=== PATIENT | female | born 1945 | race Caucasian/White ===

== ENCOUNTER 2024-09-08 14:43 | Emergency (ER) | payer SELFPAY ==
[2024-09-08 14:59] VITALS: BP 139/81
[2024-09-08 16:28] VITALS: BMI 30.9
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
[2024-09-08] MEDS: MOTRIN 800 MG PO (17:17)
[2024-09-08] MEDS: ADACEL 0.5 ML IM (17:18)
[2024-09-08 17:41] VITALS: BP 135/70
== END 2024-09-08 17:52 | disposition home or self-care (01) ==
LOC: EMR 14:43
PROVIDERS: EMERGENCY PHYSICIAN Emergency Medicine; FAMILY PHYSICIAN Internal Medicine
DX: S60.221A Contusion of right hand, initial encounter (principal); S60.012A Contusion of left thumb without damage to nail, initial encounter; S60.811A Abrasion of right wrist, initial encounter; V43.52XA Car driver injured in collision with other type car in traffic accident, initial encounter; E03.9 Hypothyroidism, unspecified; E78.00 Pure hypercholesterolemia, unspecified; Z23 Encounter for immunization
CPT/HCPCS: 29125; 90471; 99284; 71046; 73110; 90715; 93005

== ENCOUNTER → 2025-02-27 15:45 | Outpatient (REF) | payer MEDICARE, SELFPAY | LOC: DHSLP 15:45 | PROVIDERS: ATTENDING PHYSICIAN Internal Medicine Critical Care Medicine; FAMILY PHYSICIAN Nurse Practitioner Family | DX: G47.30 Sleep apnea, unspecified (principal); R06.83 Snoring; R09.02 Hypoxemia | CPT/HCPCS: 95800 ==

== ENCOUNTER 2025-03-30 14:31 | Emergency (ER) | payer MEDICARE, SELFPAY ==
[2025-03-30 14:34] VITALS: BP 154/77
--- NOTE | 2025-03-30 19:31 | ED.GENMED ---
History of Present Illness
General
Chief Complaint: Eye Problems
Time Seen by Provider: 03/30/25 19:00
History of Present Illness
History of Present Illness:
79-year-old female with history of hyperlipidemia presents to the emergency department for evaluation of brief episode of diplopia. 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 She
notes that today for approximately 1 hour she felt as though images on the left eye were 'laying on top of 1 another'. She is unable to discern if this got better or worse with comforting or uncovering of the alternate eye. Symptoms have since
resolved. She states she has a family history of brain aneurysm and wants to be sure that this is not the cause of her symptoms today. Denies any headache, extremity paresthesias, or speech difficulty.
Past History
Past History
ED Past Medical History: Hypercholesterolemia, Psychiatric and Other (Hypothyroidism, insomnia,)
ED Past Surgical History: Gynecological and Orthopedic
Social History
Tobacco: Non-smoker
Alcohol: None
Drug: None
Living: alone
Review of Systems
Review of Systems
Allergies reviewed?: Yes
All Other Systems: ROS reviewed and negative except as documented in HPI and ROS
Phy Exam
Physical Exam
Physical Exam:
GEN: Well appearing, NAD, WDWN
HEENT: Oral mucosa moist, no scleral icterus, no nasal congestion
Cardiac: Regular rate and rhythm, no murmur
Lung: No respiratory distress, no tachypnea
MSK: No gross deformity or injuries
Skin: Good color, no pallor or jaundice, no rashes
Neuro: AO x3; CN II-XII grossly intact. BUE strength 5/5 in all best, sensation intact and symmetric. BLE strength 5/5 in all best, sensation intact and symmetric
Psych: Calm, cooperative
Course
Orders/Labs/Results
Orders:
Orders
03/30/25 14:[address] [CT Head W/o Iv Contrast] Urgent
Comment:
Reason For Exam: resolved double vision
03/30/25 19:20
03/30/25 19:21
Vital Signs
Initial and Last Documented VS:
Initial Vital Signs
Temp Pulse Resp BP Pulse Ox
97.8 F 69 18 154/77 98
03/30/25 14:34 03/30/25 14:34 03/30/25 14:34 03/30/25 14:34 03/30/25 14:34
Last Documented Vital Signs
Temp Pulse Resp BP Pulse Ox
97.8 F 69 18 154/77 98
03/30/25 14:34 03/30/25 14:34 03/30/25 14:34 03/30/25 14:34 03/30/25 19:31
MDM/Problems Addressed
MDM/Problems Addressed:
Patient's symptoms have resolved. Initial head CT was reassuring. I discussed the findings with the patient and recommended that we consider additional imaging and lab work such as CT angiogram to further evaluate for potential brain aneurysm
however she would prefer to be discharged home. I advised her that our workup today is not adequate to fully evaluate diplopia although my suspicion for an intracranial cause is low, particularly given that she has chronic right-sided diplopia,
this may be a progression of whatever ophthalmologic issue caused that to develop. I have recommended she consider follow-up with her primary doctor to obtain an outpatient MRI
*Pulse Oximetry
SaO2: 98
Oxygen Mode of Delivery: Room air
Patient hypoxic: no
*Critical Care Note
Total Time (30-74mins, 75-104mins- exclusive of procedures): Not Applicable
ED Attending Note
-
Portions of this chart may have been created with voice recognition software.� Occasional wrong word or��sound alike� substitutions may have occurred due to the inherent limitations of voice recognition software.
Discharge Plan
Departure
Patient Disposition: Home (Routine Discharge)
Date of Disposition: 03/30/25
Time of Disposition: 19:31
Patient with high blood pressure during this ER visit?: No
Discharge Problem:
Transient diplopia
Instructions: Double Vision (DC)
Referrals:
Jeff Bullock MD [Family Provider, Family Practice]
Activity Restrictions/Additional Instructions:
Follow up with your primary doctor for MRI
Interventions
Interventions:
*Risk Screen - Suicide Last Done: 03/30/25 14:34
*General Assessment Last Done: 03/30/25 14:34
*Neglect/Abuse Screening Last Done: 03/30/25 14:34
*ED- Fall Risk Assessment Last Done: 03/30/25 14:34
*ED COVID-19 Vaccine History Last Done: 03/30/25 14:34
*Nursing Disposition Last Done: 03/30/25 19:32
Discharge Date and Time
Discharge Date/Time: 03/30/25 19:32
Print Language: [place]
== END 2025-03-30 19:32 | disposition home or self-care (01) ==
LOC: EMR 14:31
PROVIDERS: EMERGENCY PHYSICIAN Emergency Medicine; FAMILY PHYSICIAN Family Medicine
DX: H53.2 Diplopia (principal); E78.00 Pure hypercholesterolemia, unspecified
CPT/HCPCS: 99284; 70450

== ENCOUNTER → 2025-04-17 13:56 | Outpatient (REF) | payer MEDICARE, SELFPAY ==
[2025-04-17 15:58] LABS: ALT (SGPT) 19 U/L (0-35); AST (SGOT) 26 U/L (14-36); Albumin 4.4 g/dl (3.5-5.0); Alkaline Phosphatase 81 U/L (38-126); Blood Urea Nitrogen 21 mg/dl (7-17); Calcium 9.6 mg/dl (8.4-10.2); Carbon Dioxide 21 mmol/L (22-30); Chloride 110 mmol/L (98-107); Glucose 122 mg/dl (70-99); Potassium 4.3 mmol/L (3.5-5.1); Sodium 140 mmol/L (135-145); Total Protein 7.0 g/dl (6.3-8.2); eGFR > 60.00
[2025-04-17 16:24] LABS: TSH 1.21 uIU/ml (0.47-4.68)
== END ==
LOC: REG 13:56
PROVIDERS: ATTENDING PHYSICIAN Nurse Practitioner Family; FAMILY PHYSICIAN Family Medicine
DX: E03.9 Hypothyroidism, unspecified (principal); R73.01 Impaired fasting glucose; E78.00 Pure hypercholesterolemia, unspecified; E66.9 Obesity, unspecified; E66.09 Other obesity due to excess calories; Z68.32 Body mass index [BMI] 32.0-32.9, adult; E66.811 Obesity, class 1
CPT/HCPCS: 36415; 80053; 84439; 84443

== ENCOUNTER → 2025-06-04 10:35 | Outpatient (REF) | payer MEDICARE, SELFPAY ==
[2025-06-04 11:27] LABS: Urine Character Clear (Clear)
[2025-06-04 12:22] LABS: Urine Squamous Cell >30 /LPF (Few); Urine Urothelial Cell 0-2 /LPF (FEW)
[2025-06-04 12:23] LABS: Urine Red Blood Cell 0-2 /HPF (0-2)
== END ==
LOC: REG 10:35
PROVIDERS: ATTENDING PHYSICIAN Obstetrics & Gynecology; FAMILY PHYSICIAN Nurse Practitioner Family
DX: N39.0 Urinary tract infection, site not specified (principal)
CPT/HCPCS: 81003; 81015; 87086

== ENCOUNTER → 2025-06-20 14:10 | Outpatient (REF) | payer MEDICARE, SELFPAY ==
[2025-06-20 14:45] LABS: Hematocrit 42.2 % (37.0-47.0); Hemoglobin 13.9 g/dL (12.0-16.0); Mean Corp Hgb Conc. 32.9 g/dL (33.0-37.0); Mean Corpuscular Volume 91.7 fL (81.0-99.0); Nucleated Red Blood Cells % 0 %; Platelet Count 253 10^3/uL (130-400); Red Cell Dist. Width 13.3 % (11.5-14.5)
[2025-06-20 15:01] LABS: ALT (SGPT) 17 U/L (0-35); AST (SGOT) 25 U/L (14-36); Albumin 4.8 g/dl (3.5-5.0); Alkaline Phosphatase 78 U/L (38-126); Blood Urea Nitrogen 21 mg/dl (7-17); Calcium 10.2 mg/dl (8.4-10.2); Carbon Dioxide 27 mmol/L (22-30); Chloride 106 mmol/L (98-107); Glucose 118 mg/dl (70-99); Potassium 4.3 mmol/L (3.5-5.1); Sodium 141 mmol/L (135-145); Total Protein 7.8 g/dl (6.3-8.2); eGFR > 60.00
[2025-06-20 15:56] LABS: Vitamin B12 420 pg/ml (239-931)
[2025-06-21 09:28] LABS: Glycohemoglobin (HgbA1c) 5.6 % (4.0-5.6)
== END ==
LOC: REG 14:10
PROVIDERS: ATTENDING PHYSICIAN Physician Assistant Medical; FAMILY PHYSICIAN Internal Medicine
DX: E03.9 Hypothyroidism, unspecified (principal); E78.00 Pure hypercholesterolemia, unspecified; M54.41 Lumbago with sciatica, right side; R41.3 Other amnesia; R73.9 Hyperglycemia, unspecified; M72.2 Plantar fascial fibromatosis
CPT/HCPCS: 36415; 73630; 80053; 82607; 83036; 84443; 85025

== ENCOUNTER → 2025-09-10 09:36 | Outpatient (REF) | payer MEDICARE, SELFPAY ==
[2025-09-10 11:22] LABS: Hematocrit 42.9 % (37.0-47.0); Hemoglobin 13.8 g/dL (12.0-16.0); Mean Corp Hgb Conc. 32.2 g/dL (33.0-37.0); Mean Corpuscular Volume 92.7 fL (81.0-99.0); Nucleated Red Blood Cells % 0 %; Platelet Count 214 10^3/uL (130-400); Red Cell Dist. Width 13.6 % (11.5-14.5)
[2025-09-10 11:51] LABS: ALT (SGPT) 24 U/L (0-35); AST (SGOT) 30 U/L (14-36); Albumin 4.8 g/dl (3.5-5.0); Alkaline Phosphatase 78 U/L (38-126); Blood Urea Nitrogen 19 mg/dl (7-17); Calcium 9.8 mg/dl (8.4-10.2); Carbon Dioxide 26 mmol/L (22-30); Chloride 103 mmol/L (98-107); Glucose 105 mg/dl (70-99); HDL Cholesterol 73 mg/dl; LDL Cholesterol, Calculated 96 mg/dl; Potassium 4.2 mmol/L (3.5-5.1); Sodium 138 mmol/L (135-145); Total Protein 8.0 g/dl (6.3-8.2); Very Low Density Lipoprotein 29 mg/dl (0-30); eGFR > 60.00
[2025-09-10 12:15] LABS: TSH 2.99 uIU/ml (0.47-4.68)
== END ==
LOC: REG 09:36
PROVIDERS: ATTENDING PHYSICIAN Internal Medicine Cardiovascular Disease; FAMILY PHYSICIAN Nurse Practitioner Family; OTHER PHYSICIAN Specialist
DX: K52.9 Noninfective gastroenteritis and colitis, unspecified (principal); E78.5 Hyperlipidemia, unspecified
CPT/HCPCS: 36415; 80053; 80061; 84443; 85025